=== PATIENT | female | born 2000 | race Caucasian/White ===

== ENCOUNTER 2022-01-23 17:32 | Inpatient (IN) ==
[2022-01-23 18:07] LABS: Basophils # 0.1 10*3/uL (0.0-0.2); Basophils % 0.3 % (0.0-0.8); Eosinophils % 0.3 % (0.00-10.9); Hematocrit 33.3 VOL% (35.7-47.0); Hemoglobin 10.4 GM/DL (12.0-16.0); Immature Granulocytes % 0.4 %; Immature Granulocytes Absolute 0.07 #; Lymphocytes # 2.8 10*3/uL (1.4-4.0); Lymphocytes % 17.9 % (21.3-54.2); Mean Corpuscular HGB Conc 31.2 GM/DL (32-36); Mean Corpuscular Volume 82.2 FL (87-102); Mean Platelet Volume 10.2 FL (9.6-12.0); Monocytes % 8.1 % (1.7-12.7); Platelet Count 378 T/CUMM (130-400); Red Blood Count 4.05 MC/CUMM (3.8-5.5); Red Cell Distribution Width 14.7 % (9.3-17.3); White Blood Count 15.7 T/CUMM (4-12)
[2022-01-23 18:14] LABS: Amorphous Crystals,Urine Occasional /HPF (Few); RBC,Urine 3 /HPF (0-4); Squamous Epithelial Cell,Urine Occasional /HPF (0-10)
[2022-01-23 18:15] LABS: Glucose,Urine (UA) Negative (Negative); Ketones,Urine >=160 mg/dL (Negative); Protein,Urine Negative (Negative); Urine Appearance Slightly Cloudy (Clear); Urine Color Yellow (Yellow); Urine Specific Gravity 1.015 (1.001-1.035)
[2022-01-23 18:16] LABS: Bilirubin,Urine Negative (Negative); Blood, Urine Large mg/dL (Negative); Nitrite,Urine Negative (Negative); Urine Urobilinogen 0.2 eU/dL (<2.0)
[2022-01-23 18:32] LABS: INR 0.9; PT Patient Result 10.5 SECS (10.5-12.0); Partial Thromboplastin Time 24.1 SECS (23.8-32.1)
[2022-01-23 18:38] LABS: Alanine Aminotransferase 17 U/L (13-56); Albumin 2.7 G/DL (3.4-5.0); Alkaline Phosphatase 164 U/L (45-117); Aspartate Amino Transferase 14 U/L (0-37); Bilirubin,Direct < 0.100 MG/DL (0.0-0.20); Bilirubin,Total < 0.39 MG/DL (0.20-1.00); Blood Urea Nitrogen 4 MG/DL (7-18); Calcium 8.6 MG/DL (8.5-10.1); Carbon Dioxide 20 MMOL/L (21-32); Estimated Glom Filtration Rate 142 ML/MIN; Glucose 76 MG/DL (74-106); Osmolality,Calculated 270.7 MOS/KG (273-304); Potassium 3.4 MMOL/L (3.5-5.1); Sodium 138 MMOL/L (136-145); Total Protein 7.3 G/DL (6.4-8.2); Uric Acid 3.8 MG/DL (2.6-6.0)
[2022-01-23 19:06] LABS: Protein/Creatinine Ratio,Urine 0.4 RATIO
[2022-01-23] MEDS ORDERED: ONDANSETRON 4 MG/2 ML VIAL IV PRN (20:18)
[2022-01-23] MEDS ORDERED: BUTORPHANOL 2 MG/ML VIAL IV PRN (20:18)
[2022-01-23] MEDS ORDERED: LACTATED RINGERS 500 ML IV PRN (20:18)
[2022-01-23] MEDS ORDERED: MEPERIDINE 50 MG/1 ML VIAL IV PRN ×2 (20:18→20:22)
[2022-01-23] MEDS ORDERED: ACETAMINOPHEN 500 MG TABLET PO ONE (20:26)
[2022-01-24] MEDS: LACTATED RINGERS 1,000 ML IV SCH ×2 (09:07→18:27)
[2022-01-24] MEDS ORDERED: AMPICILLIN INJ 2,000 MG in SODIUM CHLORIDE 0.9% 100 ML IV ONE (10:00)
[2022-01-24] MEDS: OXYTOCIN/LR 20 UNIT/1,000 ML BAG IV SCH (11:55)
[2022-01-24] MEDS: AMPICILLIN INJ 1,000 MG in SODIUM CHLORIDE 0.9% 100 ML IV SCH ×3 (14:34→22:05)
[2022-01-24] MEDS ORDERED: hydrOXYzine HCL 25 MG/1 ML VIAL IM PRN (14:45)
[2022-01-24] MEDS ORDERED: FAMOTIDINE 20 MG/2 ML VIAL IV ONE (14:45)
[2022-01-24] MEDS ORDERED: CITRIC ACID/SODIUM CITRATE 30 ML UDCUP PO ONE (14:45)
[2022-01-24] MEDS ORDERED: NALOXONE 0.4 MG/ML VIAL IV PRN (14:45)
[2022-01-24] MEDS ORDERED: LACTATED RINGERS 500 ML IV ONE (14:45)
[2022-01-24] MEDS ORDERED: LACTATED RINGERS 1,000 ML IV ONE (14:45)
[2022-01-24] MEDS ORDERED: PROMETHAZINE 25 MG/1 ML VIAL IM ONE (14:45)
[2022-01-24] MEDS ORDERED: diphenhydrAMINE 50 MG/1 ML VIAL IV PRN ×2 (14:45)
[2022-01-24] MEDS ORDERED: LACTATED RINGERS 1,000 ML IV SCH (15:00)
[2022-01-24] MEDS ORDERED: ePHEDrine 50 MG/ML VIAL ONE (15:01)
[2022-01-24] MEDS: fentaNYL 2 MCG/ROPIV 0.2% EPID 100 ML EPIDURAL SCH ×2 (15:29→22:51)
[2022-01-24 17:10] LABS: Mucus,Urine Occasional /LPF (Occasional); Squamous Epithelial Cell,Urine Occasional /HPF (0-10)
[2022-01-24 17:11] LABS: Bilirubin,Urine Negative (Negative); Blood, Urine Negative (Negative); Glucose,Urine (UA) Negative (Negative); Ketones,Urine >=160 mg/dL (Negative); Nitrite,Urine Negative (Negative); Protein,Urine Negative (Negative); Urine Appearance Clear (Clear); Urine Color Yellow (Yellow); Urine Urobilinogen 0.2 eU/dL (<2.0)
[2022-01-25] MEDS ORDERED: miSOPROStoL 200 MCG TABLET ONE (00:37)
[2022-01-25] MEDS ORDERED: TRANEXAMIC ACID 1,000 MG/10 ML VIAL ONE (00:38)
[2022-01-25] MEDS ORDERED: OXYTOCIN/LR 20 UNIT/1,000 ML BAG IV ONE ×2 (00:38→04:08)
[2022-01-25] MEDS ORDERED: METHYLERGONOVINE 0.2 MG/1 ML AMP ONE (00:38)
[2022-01-25] MEDS ORDERED: SODIUM CHLORIDE 0.9% 0 ML IV ONE (00:38)
[2022-01-25] MEDS ORDERED: CARBOPROST TROMETHAMINE 250 MCG/ML AMP IM ONE (00:39)
[2022-01-25] MEDS: AMPICILLIN INJ 1,000 MG in SODIUM CHLORIDE 0.9% 100 ML IV SCH (01:52)
[2022-01-25] MEDS ORDERED: ACETAMINOPHEN 500 MG TABLET PO PRN (02:17)
[2022-01-25 02:22] LABS: Cord Arterial Blood HCO3 17.9 MMOL/L
[2022-01-25 02:25] LABS: Cord Venous Blood HCO3 19.9 MMOL/L; Cord Venous Blood PCO2 37.4 MMHG; Cord Venous Blood PO2 32.4
[2022-01-25] MEDS: OXYTOCIN/LR 20 UNIT/1,000 ML BAG IV SCH (02:41)
[2022-01-25] MEDS ORDERED: oxyCODONE/ACETAMINOPHEN 5-325 MG TABLET PO PRN ×2 (04:08)
[2022-01-25] MEDS ORDERED: IBUPROFEN 800 MG TABLET PO PRN (04:08)
[2022-01-25] MEDS ORDERED: DIPH/TET/ACEL PERT BOOSTER VACCINE 0.5 ML VIAL IM ONE (04:08)
[2022-01-25] MEDS ORDERED: ACETAMINOPHEN 325 MG TABLET PO PRN (04:08)
[2022-01-25] MEDS ORDERED: HYDROCORTISONE 2.5% RECTAL CREAM 30 GM TUBE TOP PRN (04:08)
[2022-01-25] MEDS ORDERED: BISACODYL 10 MG SUPP RECTAL PRN (04:08)
[2022-01-25] MEDS ORDERED: BENZOCAINE 20%/MENTHOL 0.5% SPRAY 56 GM CAN TOP PRN (04:08)
[2022-01-25] MEDS ORDERED: MEASLES/MUMPS/RUBELLA VACCINE 0.5 ML VIAL SUBCUT ONE (04:08)
[2022-01-25] MEDS ORDERED: RHO(D) IMMUNE GLOBULIN 300 MCG SYRINGE IM ONE (04:08)
[2022-01-25] MEDS ORDERED: LANOLIN 50% CREAM 0.3 OZ TUBE TOP PRN (04:08)
[2022-01-25] MEDS ORDERED: ONDANSETRON 4 MG/2 ML VIAL IV PRN (04:08)
[2022-01-25] MEDS ORDERED: WITCH HAZEL PADS 100/JAR TOP PRN (04:08)
[2022-01-25 10:06] LABS: Basophils # 0.1 10*3/uL (0.0-0.2); Basophils % 0.3 % (0.0-0.8); Hematocrit 31.1 VOL% (35.7-47.0); Hemoglobin 9.8 GM/DL (12.0-16.0); Immature Granulocytes % 0.6 %; Immature Granulocytes Absolute 0.13 #; Lymphocytes # 1.7 10*3/uL (1.4-4.0); Lymphocytes % 8.2 % (21.3-54.2); Mean Corpuscular HGB Conc 31.5 GM/DL (32-36); Mean Corpuscular Volume 84.1 FL (87-102); Mean Platelet Volume 10.5 FL (9.6-12.0); Monocytes % 9.7 % (1.7-12.7); Neutrophils % 81.2 % (38.7-73.9); Platelet Count 281 T/CUMM (130-400); Red Cell Distribution Width 14.9 % (9.3-17.3); White Blood Count 20.8 T/CUMM (4-12)
[2022-01-25 10:34] LABS: Band Neutrophils 1 % (0-10); Eosinophils 1 % (0-10); Lymphocytes 13 % (20-55); Macrocytosis Slight; Platelet Estimate Adequate; Segmented Neutrophils 81 % (50-85); Total Cells Counted 100
[2022-01-25 10:35] LABS: Polychromasia Slight
[2022-01-25] MEDS: DOCUSATE SODIUM 100 MG CAPSULE PO SCH (20:38)
[2022-01-26 07:36] LABS: Basophils # 0.1 10*3/uL (0.0-0.2); Basophils % 0.5 % (0.0-0.8); Eosinophils # 0.1 10*3/uL (0.0-0.87); Hematocrit 30.2 VOL% (35.7-47.0); Hemoglobin 9.3 GM/DL (12.0-16.0); Immature Granulocytes % 0.5 %; Immature Granulocytes Absolute 0.08 #; Lymphocytes # 2.3 10*3/uL (1.4-4.0); Lymphocytes % 15.3 % (21.3-54.2); Mean Corpuscular HGB Conc 30.8 GM/DL (32-36); Mean Corpuscular Volume 84.8 FL (87-102); Mean Platelet Volume 11.6 FL (9.6-12.0); Monocytes % 8.7 % (1.7-12.7); Platelet Count 202 T/CUMM (130-400); Red Blood Count 3.56 MC/CUMM (3.8-5.5); Red Cell Distribution Width 15.2 % (9.3-17.3); White Blood Count 14.7 T/CUMM (4-12)
[2022-01-26] MEDS: DOCUSATE SODIUM 100 MG CAPSULE PO SCH ×2 (08:45→21:32)
[2022-01-27] MEDS: DOCUSATE SODIUM 100 MG CAPSULE PO SCH (09:22)
[2022-01-27 12:33] VITALS: BP 128/88
== END 2022-01-27 12:30 | disposition home or self-care (01) | DRG 807 ==
LOC: N.LDOUT 17:32 → N.LD 17:37 → N.OB 01-25 12:51
PROVIDERS: ADMIT Obstetrics & Gynecology; ATTEND Obstetrics & Gynecology